=== PATIENT | female | born 1990 | race Caucasian/White ===

== ENCOUNTER 2017-05-20 12:06 | Outpatient (CLI) | payer MEDICAID ==
[~2017-05-20] VITALS: Ht 154.9 cm; Wt 78.3 kg
[2017-05-20] MEDS ORDERED: PREN1TAB13 PO (12:25)
[2017-05-20 12:26] VITALS: BP 100/60; PULSE 66; RESP 18; Ht 154.9 cm; Wt 78.3 kg
--- NOTE | 2017-05-20 12:44 | RADRPT ---
PROCEDURE: US OB biophysical profile. CLINICAL INDICATION: decreased movements TECHNIQUE: Multiple sonographic images of the pelvis were obtained. The images were reviewed on a PACS workstation. COMPARISON: No prior studies are available for comparison. FINDINGS: There is a single viable intrauterine gestation. Cardiac activity is present with 144 beats per min [place]. There is a vertex presentation. The placenta is posterior. There is no evidence of placental abruption. There is a normal amount of amniotic fluid with an HERMINIA = 16.5 cm. Biophysical profile: movement 2/2 tone 2/2. breathing 2/2 HERMINIA 2/2 Total 03/31 RPTAT: AA . IMPRESSION: Normal biophysical profile. . .Khanh Horton MD, MD Date Time Electronically viewed and signed by .Khanh Horton MD, MD on 05/20/2017 12:44 .S/
--- NOTE | 2017-05-20 15:29 | TRIAGE ---
OB Triage Datetime Report Generated by CPN: 05/20/2017 15:28 Datetime: 05/20/2017 14:00 Stage of : OB Triage Maternal Assessment Level of Consciousness: Fully Conscious Labor Evaluation Frequency: 5UC/HR Monitor Mode: External Duration (sec)2399: 30-80 Quality: Mild Resting Tone [place]: Relaxed Heart Rate FHR Baseline Rate: 125 Monitor Mode: External US Variability: Moderate 6-25 bpm Accelerations: 15X15 Decelerations: Variable Pain Assessment Pain Scale: 0 Pain Goal: 3 Vaginal Exam Membrane Status: Intact Vaginal Bleeding: None Datetime: 05/20/2017 13:00 Stage of : OB Triage Maternal Assessment Level of Consciousness: Fully Conscious Labor Evaluation Frequency: IRREGULAR Monitor Mode: External Duration (sec)2399: 30-80 Quality: Mild Resting Tone [place]: Relaxed Heart Rate FHR Baseline Rate: 125 Monitor Mode: External US Variability: Moderate 6-25 bpm Accelerations: 15X15 Decelerations: None Pain Assessment Pain Scale: 0 Pain Goal: 3 Vaginal Exam Membrane Status: Intact Vaginal Bleeding: None Datetime: 05/20/2017 12:23 Assessment Type: Triage Maternal Assessment Level of Consciousness: Fully Conscious DTR's/Clonus: DTRs 2+; No Clonus Headache: Denies Blurred Vision: No Respiratory Effort: Unlabored; Regular Rhythm; Equal Expansion Breath Sounds, Left: Clear and Equal Breath Sounds, Right: Clear and Equal Nausea/Vomiting: Denies RUQ Epigastric Pain: Denies Lower Extremities Edema: None Degree: None Upper Extremities Edema: None Degree: None Facial Edema: None Fall Risk Assessment History of Falling: (0) No Secondary Diagnosis: (0) No Ambulatory Aid: (0) Bedrest/Nurse Assist IV Therapy: (0) No Gait: (0) Normal/Bedrest/Immobile Mental Status: (0) Oriented to Own Ability Fall Score: 0 Fall Risk Score Definition: No Risk: No action required Datetime: 05/20/2017 12:20 Time of Arrival: 05/20/2017 12:00 EGA: 31.3 Arrived By: Ambulatory Arrived From: Dr. Vásquez Chief Complaint: PT HERE C/O DFM, AND RHOGHAM Movement: Decreased Contractions: Denies/Absent Rupture of Membranes: Denies Vaginal Bleeding: None Vaginal Discharge: Denies Recent Sexual Intercouse: Denies Abdominal Trauma: Not Applicable Patient Complaints: None Time Provider Notified: 05/20/2017 12:00 Provider Notified: COUNTS INCLUDE 234 BEDS AT THE [facility] Initial Plan: EFM, NST,RHOGHAM Datetime: 05/20/2017 12:19 Monitor Mode: External Monitor Mode: External US
--- NOTE | 2017-05-20 19:08 | PN ---
Triage Information Date/Time May 20, 2017 Reason for visit: DFM (Patient here due to decreased movement as well as to receive RhoGam shot since the patient is Rh-.) Weeks of Gestation 31 weeks and 3 days /Para 3 para 2 Diabetes: none Hypertention: none Additional information 27-year-old with IUP at 31 weeks and 3 days, Rh-. care with Dr. Magana presented to receive RhoGam shot as well as for evaluation due to decreased movement. She denies any leaking of fluid, vaginal bleeding or uterine contractions. Objective Vital Signs Date Time Temp Pulse Resp B/P Pulse Ox O2 Delivery O2 Flow Rate FiO2 05/20/17 12:26 97.9 66 18 100/60 99 Room Air Heart Rate: 130's Contractions: None Exam PROCEDURE: US OB biophysical profile. CLINICAL INDICATION: decreased movements TECHNIQUE: Multiple sonographic images of the pelvis were obtained. The images were reviewed on a PACS workstation. COMPARISON: No prior studies are available for comparison. FINDINGS: There is a single viable intrauterine gestation. Cardiac activity is present with 144 beats per minute. There is a vertex presentation. The placenta is posterior. There is no evidence of placental abruption. There is a normal amount of amniotic fluid with an HERMINIA = 16.5 cm. Biophysical profile: movement 2/2 tone 2/2. breathing 2/2 HERMINIA 2/2 Total 8/8 RPTAT: AA . IMPRESSION: Normal biophysical profile. . Disposition: Discharge Assessment/Plan IUP at 31 weeks and 3 days movement, NST category 1, BPP: 8/8 HERMINIA: 16.5 Patient received RhoGam shot after she had blood drawn for type and screen She was reassured after had reassuring testing Was discharged home with strict labor precaution and kick count and follow-up within 24-48 hours with her primary OB Patient verbalized understanding and agreed to comply with instructions ADELA STEIN MD May 20, 2017 19:08
== END 2017-05-20 15:30 | disposition home or self-care (01) ==
LOC: OBT 12:06 → L-D 12:09 → OBT 15:30
PROVIDERS: ATTEND Obstetrics & Gynecology
DX: O36.8130 Decreased fetal movements, third trimester, not applicable or unspecified (principal); Z3A.31 31 weeks gestation of pregnancy
CPT/HCPCS: 76818; 86850; 86885; 86900; 86901; 96372; J2790; Z7500; G0463

== ENCOUNTER 2017-06-24 11:15 | Outpatient (CLI) | payer MEDICAID ==
[~2017-06-24] VITALS: Ht 154.9 cm; Wt 80.1 kg
[~2017-06-24 11:15] MED LIST: PREN1TAB13 PO
[2017-06-24 12:52] VITALS: BP 106/59; PULSE 71; Ht 154.9 cm; Wt 80.1 kg
--- NOTE | 2017-06-24 13:41 | RADRPT ---
PROCEDURE: US OB biophysical profile. CLINICAL INDICATION: decreased movements, PIH TECHNIQUE: Multiple sonographic images of the pelvis were obtained. The images were reviewed on a PACS workstation. COMPARISON: 05/20/2017 FINDINGS: There is a single viable intrauterine gestation. Cardiac activity is present with 139 beats per min [place]. There is a vertex presentation. The placenta is posterior. There is no evidence of placental abruption. There is a normal amount of amniotic fluid with an HERMINIA = 12.2 cm. Biophysical profile: movement 2/2 tone 2/2. breathing 2/2 HERMINIA 2/2 Total 03/31 RPTAT: AA . IMPRESSION: Normal biophysical profile. . .Khanh Horton MD, MD Date Time Electronically viewed and signed by .Khanh Horton MD, MD on 06/24/2017 13:40 .S/
--- NOTE | 2017-06-24 13:41 | RADRPT ---
PROCEDURE: US OB. CLINICAL INDICATION: Size and dates TECHNIQUE: Multiple sonographic images of the pelvis and gravid uterus were obtained. The images were reviewed on a PACS workstation. COMPARISON: 05/20/2017 FINDINGS: There is a single viable intrauterine gestation. Cardiac activity is present with 152 beats per min [place]. There is a vertex presentation. The placenta is posterior. There is no evidence of placental abruption. There is a normal amount of amniotic fluid with an HERMINIA = 12.2 cm. Measurements were made in order to determine age. The results are as follows: BPD =8.8 cm HC =32.1 cm AC =33 cm FL =6.9 cm Estimated gestational age of approximately 36 weeks and 0 days based on ultrasound measurements. Clinical age: 36 weeks and 3 days. The estimated date of delivery is 07/22/17, based on ultrasound measurements. The EFW = 2902 g, 49.6%, based on LMP age. RPTAT: AA IMPRESSION: Single viable intrauterine gestation of approximately 36 weeks and 0 days based on ultrasound measu rements. .Khanh Horton MD, MD Date Time Electronically viewed and signed by .Khanh Horton MD, on 06/24/2017 13:41 .S/
[2017-06-24 13:52] LABS: BASOPHILS % 0.3 % (0.0-2.0); EOSINOPHILS # 0.1 10^3/ul (0.0-0.5); HEMATOCRIT 31.1 % (37.0-47.0); LYMPHOCYTES # 2.2 10^3/ul (0.8-2.9); LYMPHOCYTES % 30.1 % (15.0-51.0); MEAN CORPUSCULAR HEMOGLOBIN 28.8 pg (29.0-33.0); MEAN CORPUSCULAR HGB CONC 32.2 g/dl (32.0-37.0); MEAN CORPUSCULAR VOLUME 89.6 fl (82.0-101.0); MEAN PLATELET VOLUME 10.6 fl (7.4-10.4); MONOCYTE # 0.6 10^3/ul (0.3-0.9); NEUTROPHIL # 4.3 10^3/ul (1.6-7.5); NEUTROPHILS % 59.1 % (39.0-77.0); PLATELET COUNT 257 10^3/UL (140-415); RED BLOOD COUNT 3.47 10^6/ul (4.20-5.40); RED CELL DISTRIBUTION WIDTH 12.3 % (11.5-14.5); WHITE BLOOD COUNT 7.2 10^3/ul (4.8-10.8)
[2017-06-24 14:13] LABS: INR 0.89; PT RATIO 0.9
[2017-06-24 14:14] LABS: PARTIAL THROMBOPLASTIN TIME 23.3 Sec (25.0-35.0)
[2017-06-24 14:16] LABS: ALBUMIN 3.3 g/dl (3.3-4.9); ALBUMIN/GLOBULIN RATIO 0.91; BILIRUBIN,INDIRECT 0.1 mg/dl (0-1.1); BILIRUBIN,TOTAL 0.1 mg/dl (0.2-1.3); CALCIUM 8.5 mg/dl (8.4-10.2); CREATININE 0.56 mg/dl (0.44-1.00); TOTAL PROTEIN 6.9 g/dl (6.1-8.1); URIC ACID 5.2 mg/dl (3.1-7.9)
[2017-06-24] MEDS ORDERED: ACETAMINOPHEN 500 MG TAB PO STA (15:22)
--- NOTE | 2017-06-24 16:14 | PN ---
Triage Information Date/Time Reason for visit: R/o PIH, FINN and blurred vision occasionally Weeks of Gestation 36 weeks and 3 days /Para Additional information 27 years old with IUP at 36 weeks and 3days and care with Dr. Magana presented and was sent to triage for evaluation for PIH due to headache and occcasional blurred vision. Denies any epigastric pain or RUQ pain. Denies any LOF, vaginal bleeding or decreased movement. records reviewed, no elevated BP noted. headache started since yesterday, some times has blurred vision when she feels her BP is low, Never has been checking her BP at home Patient noted to have normal BP in the triage during observation. Objective Vital Signs Date Time Temp Pulse Resp B/P Pulse Ox O2 Delivery O2 Flow Rate FiO2 06/24/17 12:52 98.1 71 106/59 Exam GA: A&O, in mild distress Abdomen: soft, non tender, gravid Fundal Height consistent with GA NST: Cat 1 PIH labs normal Hematology - 72 Hrs Test 06/24/17 13:21 White Blood Count 7.210^3/ul (4.8-10.8) Red Blood Count 3.4710^6/ul (4.20-5.40) L Hemoglobin 10.0g/dl (12.0-16.0) L Hematocrit 31.1% (37.0-47.0) L Mean Corpuscular Volume 89.6fl (82.0-101.0) Mean Corpuscular Hemoglobin 28.8pg (29.0-33.0) L Mean Corpuscular Hemoglobin Concent 32.2g/dl (32.0-37.0) Red Cell Distribution Width 12.3% (11.5-14.5) Platelet Count 93534^3/UL (140-415) Mean Platelet Volume 10.6fl (7.4-10.4) H Neutrophils % 59.1% (39.0-77.0) Lymphocytes % 30.1% (15.0-51.0) Monocytes % 8.0% (0.0-11.0) Eosinophils % 1.0% (0.0-7.0) Basophils % 0.3% (0.0-2.0) Nucleated Red Blood Cells % 0.0/100WBC (0.0-0.0) Neutrophils # 4.310^3/ul (1.6-7.5) Lymphocytes # 2.210^3/ul (0.8-2.9) Monocytes # 0.610^3/ul (0.3-0.9) Eosinophils # 0.110^3/ul (0.0-0.5) Basophils # 0.010^3/ul (0.0-0.1) Nucleated Red Blood Cells # 0.010^3/ul (0.0-0.0) Chemistry Test 06/24/17 13:10 Sodium Level 137mmol/L (135-144) Potassium Level 4.0mmol/L (3.5-5.1) Chloride Level 107mmol/L (97-110) Carbon Dioxide Level 21mmol/L (21-31) Anion Gap 13 (8-16) Blood Urea Nitrogen 8mg/dl (7-20) Creatinine 0.56mg/dl (0.44-1.00) Glucose Level 78mg/dl (70-220) Uric Acid 5.2mg/dl (3.1-7.9) Calcium Level 8.5mg/dl (8.4-10.2) Total Bilirubin 0.1mg/dl (0.2-1.3) L Direct Bilirubin 0.00mg/dl (0.00-0.20) Indirect Bilirubin 0.1mg/dl (0-1.1) Aspartate Amino Transf (AST/SGOT) 32IU/L (15-46) Alanine Aminotransferase (ALT/SGPT) 28IU/L (13-69) Alkaline Phosphatase 167IU/L (42-121) H Total Protein 6.9g/dl (6.1-8.1) Albumin 3.3g/dl (3.3-4.9) Globulin 3.60g/dl (1.3-3.2) H Albumin/Globulin Ratio 0.91 Results/Medications Result Diagram: 06/24/17 1321 06/24/17 1310 Results 24 hrs Laboratory Tests Test 06/24/17 13:10 06/24/17 13:20 06/24/17 13:21 Sodium Level 137 Potassium Level 4.0 Chloride Level 107 Carbon Dioxide Level 21 Anion Gap 13 Blood Urea Nitrogen 8 Creatinine 0.56 Glucose Level 78 Uric Acid 5.2 Calcium Level 8.5 Total Bilirubin 0.1 L Direct Bilirubin 0.00 Indirect Bilirubin 0.1 Aspartate Amino Transf (AST/SGOT) 32 Alanine Aminotransferase (ALT/SGPT) 28 Alkaline Phosphatase 167 H Total Protein 6.9 Albumin 3.3 Globulin 3.60 H Albumin/Globulin Ratio 0.91 Prothrombin Time 12.0 L Prothrombin Time Ratio 0.9 INR International Normalized Ratio 0.89 Activated Partial Thromboplast Time 23.3 L Fibrinogen 594.0 H White Blood Count 7.2 Red Blood Count 3.47 L Hemoglobin 10.0 L Hematocrit 31.1 L Mean Corpuscular Volume 89.6 Mean Corpuscular Hemoglobin 28.8 L Mean Corpuscular Hemoglobin Concent 32.2 Red Cell Distribution Width 12.3 Platelet Count 257 Mean Platelet Volume 10.6 H Neutrophils % 59.1 Lymphocytes % 30.1 Monocytes % 8.0 Eosinophils % 1.0 Basophils % 0.3 Nucleated Red Blood Cells % 0.0 Neutrophils # 4.3 Lymphocytes # 2.2 Monocytes # 0.6 Eosinophils # 0.1 Basophils # 0.0 Nucleated Red Blood Cells # 0.0 Imaging Results PROCEDURE: US OB biophysical profile. CLINICAL INDICATION: decreased movements, PIH TECHNIQUE: Multiple sonographic images of the pelvis were obtained. The images were reviewed on a PACS workstation. COMPARISON: 05/20/2017 FINDINGS: There is a single viable intrauterine gestation. Cardiac activity is present with 139 beats per minute. There is a vertex presentation. The placenta is posterior. There is no evidence of placental abruption. There is a normal amount of amniotic fluid with an HERMINIA = 12.2 cm. Biophysical profile: movement 2/2 tone 2/2. breathing 2/2 HERMINIA 2/2 Total 88 RPTAT: AA . IMPRESSION: Normal biophysical profile. PROCEDURE: US OB. CLINICAL INDICATION: Size and dates TECHNIQUE: Multiple sonographic images of the pelvis and gravid uterus were obtained. The images were reviewed on a PACS workstation. COMPARISON: 05/20/2017 FINDINGS: There is a single viable intrauterine gestation. Cardiac activity is present with 152 beats per minute. There is a vertex presentation. The placenta is posterior. There is no evidence of placental abruption. There is a normal amount of amniotic fluid with an HERMINIA = 12.2 cm. Measurements were made in order to determine age. The results are as follows: BPD = 8.8 cm HC = 32.1 cm AC = 33 cm FL = 6.9 cm Estimated gestational age of approximately 36 weeks and 0 days based on ultrasound measurements. Clinical age: 36 weeks and 3 days. The estimated date of delivery is 07/22/17, based on ultrasound measurements. The EFW = 2902 g, 49.6%, based on LMP age. RPTAT: AA IMPRESSION: Single viable intrauterine gestation of approximately 36 weeks and 0 days based on ultrasound measurements. Disposition: Discharge Assessment/Plan IUPmat 36 weeks and 3 days FINN and occasional blurred vision No evidence of PIH BP has been serially monitored and was normal PIH labs were all normal Finn resolved with tyleno Strict Preeclampsia precaution and PTL and FKC and follow up in 1-2 days with her OB office discussed. Patient verbalized understanding and all questions were answered science interpreter video system used for interpretation ADELA STEIN MD Jun 24, 2017 16:10
[2017-06-24 16:42] LABS: URINE BLOOD (Dip) POC Trace-lysed (NEGATIVE)
--- NOTE | 2017-06-24 17:12 | TRIAGE ---
OB Triage Datetime Report Generated by CPN: 06/24/2017 17:11 Datetime: 06/24/2017 16:43 Stage of : OB Triage Datetime: 06/24/2017 16:40 Labor Evaluation Frequency: 0 Monitor Mode: External Resting Tone [place]: Relaxed Heart Rate FHR Baseline Rate: 125 Monitor Mode: External US Variability: Moderate 6-25 bpm Accelerations: 10X10 Decelerations: None Category: Category I Pain Assessment Pain Scale: 3 Pain Presence: Constant Pain Type: Ache Pain Location: Head Pain Goal: 3 Pain Relief Measures: Comfort Measures Datetime: 06/24/2017 15:48 Labor Evaluation Frequency: 0 Monitor Mode: External Resting Tone [place]: Relaxed Heart Rate FHR Baseline Rate: 125 Monitor Mode: External US Variability: Moderate 6-25 bpm Accelerations: 10X10 Decelerations: None Category: Category I Pain Assessment Pain Scale: 6 Pain Presence: Intermittent Pain Type: Ache Pain Location: Head Pain Goal: 3 Pain Relief Measures: Comfort Measures Datetime: 06/24/2017 15:25 Stage of : OB Triage Datetime: 06/24/2017 15:17 Stage of : OB Triage Datetime: 06/24/2017 14:47 Labor Evaluation Frequency: 0 Monitor Mode: External Resting Tone [place]: Relaxed Heart Rate FHR Baseline Rate: 125 Monitor Mode: External US Variability: Moderate 6-25 bpm Accelerations: 10X10 Decelerations: None Category: Category I Pain Assessment Pain Scale: 3 Pain Presence: Constant Pain Type: Ache Pain Location: Head Pain Goal: 3 Pain Relief Measures: Comfort Measures Datetime: 06/24/2017 14:24 Monitor Mode: External US Datetime: 06/24/2017 13:56 Monitor Mode: External US Datetime: 06/24/2017 13:37 Monitor Mode: External US Datetime: 06/24/2017 13:17 Labor Evaluation Frequency: 0 Monitor Mode: External Resting Tone [place]: Relaxed Heart Rate FHR Baseline Rate: 135 Monitor Mode: External US Variability: Moderate 6-25 bpm Accelerations: 10X10 Decelerations: None Category: Category I Pain Assessment Pain Scale: 3 Pain Presence: Constant Pain Type: Ache Pain Location: Head Pain Goal: 3 Datetime: 06/24/2017 12:46 Stage of : OB Triage Assessment Type: Triage Maternal Assessment Level of Consciousness: Fully Conscious DTR's/Clonus: DTRs 2+; No Clonus Headache: Denies Respiratory Effort: Unlabored; Regular Rhythm; Equal Expansion Breath Sounds, Left: Clear and Equal Breath Sounds, Right: Clear and Equal Nausea/Vomiting: Denies RUQ Epigastric Pain: Denies Facial Edema: None Temperature Route: Axillary Fall Risk Assessment History of Falling: (0) No Secondary Diagnosis: (0) No Ambulatory Aid: (0) Bedrest/Nurse Assist IV Therapy: (0) No Gait: (0) Normal/Bedrest/Immobile Mental Status: (0) Oriented to Own Ability Fall Score: 0 Fall Risk Score Definition: No Risk: No action required Labor Evaluation Frequency: 0 Monitor Mode: External Pattern: Normal: <= 5 Contractions in 10 Minutes Resting Tone [place]: Relaxed Heart Rate FHR Baseline Rate: 125 Monitor Mode: External US Variability: Moderate 6-25 bpm Accelerations: 10X10 Decelerations: None Category: Category I Pain Assessment Pain Scale: 7 Pain Presence: Intermittent Pain Type: Cramping Pain Location: Back; Perineum Pain Goal: 3 Pain Relief Measures: Comfort Measures Datetime: 06/24/2017 12:28 Time of Arrival: 06/24/2017 11:09 EGA: 36.3 Arrived By: Ambulatory Arrived From: Dr. Office Chief Complaint: REFERRED FROM DR OFFICE TO R/O PIH, EFW, BPP. H/A AND PERINEAL/BACK PAIN THAT IS INTERMITTENT Movement: Present Contractions: Denies/Absent Rupture of Membranes: Denies Vaginal Bleeding: None Vaginal Discharge: Present Recent Sexual Intercouse: Denies Abdominal Trauma: Not Applicable Patient Complaints: Cramping; Back Pain Time Provider Notified: 06/24/2017 15:17 Provider Notified: ARDALAN Initial Plan: MONITOR, PIH PANEL, EFW, BPP Datetime: 05/20/2017 15:00 Stage of : OB Triage Maternal Assessment Level of Consciousness: Fully Conscious Labor Evaluation Frequency: occasional Monitor Mode: External Duration (sec)2399: 30-80 Quality: Mild Resting Tone [place]: Relaxed Heart Rate FHR Baseline Rate: 125 Monitor Mode: External US Variability: Moderate 6-25 bpm Accelerations: 15X15 Decelerations: Variable Pain Assessment Pain Scale: 0 Pain Goal: 3 Vaginal Exam Membrane Status: Intact Vaginal Bleeding: None Datetime: 05/20/2017 12:23 Fall Score: 0 Fall Risk Score Definition: No Risk: No action required Datetime: 05/20/2017 12:20 EGA: 31.3
== END 2017-06-24 16:55 | disposition home or self-care (01) ==
LOC: OBT 11:15 → L-D 11:15 → OBT 16:55
PROVIDERS: ATTEND Obstetrics & Gynecology
DX: O26.893 Other specified pregnancy related conditions, third trimester (principal); R51 Headache; H53.8 Other visual disturbances; O36.8130 Decreased fetal movements, third trimester, not applicable or unspecified; O26.843 Uterine size-date discrepancy, third trimester; Z3A.36 36 weeks gestation of pregnancy
CPT/HCPCS: 76815; 76818; 80053; 81003; 84560; 85025; 85384; 85610; 85730; Z7500; Z7610; G0463

== ENCOUNTER 2017-07-06 04:49 | Inpatient (IN) | payer MEDICAID ==
[2017-07-06] MEDS ORDERED: LACTATED RINGER'S 1,000 ML IV SCH (05:17)
[2017-07-06] MEDS ORDERED: AMPICILLIN 2 GM/NS (PMX) 100 ML ONE (05:21)
[2017-07-06] MEDS ORDERED: MISOPROSTOL 200 MCG TAB PR PRN ×2 (05:30→06:30)
[2017-07-06] MEDS ORDERED: AMPICILLIN 2 GM/NS (PMX) 100 ML IV ONE (05:30)
[2017-07-06] MEDS ORDERED: IBUPROFEN 600 MG TAB PO PRN (05:30)
[2017-07-06] MEDS ORDERED: OXYTOCIN 30 UNITS/LR 500 ML IV SCH ×2 (05:30)
[2017-07-06] MEDS ORDERED: OXYCODONE/ASPIRIN (4.88/325) TAB PO PRN (05:30)
[2017-07-06] MEDS ORDERED: LIDOCAINE 1% (MPF) 30 ML INJ INJ PRN (05:30)
[2017-07-06] MEDS ORDERED: LACTATED RINGER'S 1,000 ML IV PRN (05:30)
[2017-07-06] MEDS ORDERED: METHYLERGONOVINE 0.2 MG INJ IM PRN ×2 (05:30→06:30)
[2017-07-06] MEDS ORDERED: CARBOPROST 250 MCG INJ IM PRN ×2 (05:30→06:30)
[2017-07-06] MEDS ORDERED: BUTORPHANOL 2 MG INJ IV PRN (05:30)
[2017-07-06] MEDS ORDERED: OXYTOCIN 30 UNITS/LR 500 ML IV PRN ×2 (05:30→06:30)
--- NOTE | 2017-07-06 06:11 | LDN ---
Date/Time of Note Date/Time of Note DATE: 07/06/17 TIME: 06:09 Delivery Summary of a viable baby boy weighing 3425 grams, or 7# 9 oz, 20" long, and with Apgars of 8/9. Weeks of Gestation 38w 2d Placenta Delivered: Spontaneously Meconium: none Episiotomy: No Perineal laceration: 0 Anesthesia type: None Estimated blood loss: 150 All needle counts correct: Yes Any foreign bodies felt in the: No (vagina) Problems: Infant Delivery Information Sex Sex: male Apgars 1 Minute: 8 5 Minute: 9 Suctioning Nose & mouth suctioned at kelly: Yes Delee suction performed: No Umbilical Cord Umbilical cord with: 3 Vessels Cord presentations: no nuchal cord Cord Blood was obtained: Yes Mother & Baby Disposition Disposition Mom & Baby to Maternity; Good: Yes Baby to NICU: No NAKITA HUNTER MD Jul 06, 2017 06:11
--- NOTE | 2017-07-06 06:15 | HP ---
Date/Time of Note Date/Time of Note DATE: 07/06/17 TIME: 06:11 OB - History Hx of Present Free Text/Dictation 26 y.o. with an IUP at 38w 2dcame in active labor at 9 cm and with ruptured membranes. Estimated Due Date: Jul 19, 2017 : 3 Para: 2 Care: Good Care Ultrasounds: Normal mid trimester US Obstetrical Complications: None Medical Complications: None Past Family/Social History * Past Medical, Surgical, Family and Obstetric Histories reviewed from chart. Blood Type: Unknown Rubella: unknown RPR/VDRL: Unknown GBS Status: Unknown HBsAG: Unknown OB Admission Exam Vital Signs Vital Signs T= 98.1 BP 125/67 Physical Exam HEENT: WNL Heart: Rhythm Normal Lungs: Clear Abdomen: WNL Extremities: Normal Reflexes: Normal Cervical Dilatation: 9cm Effacement: 100% Station: -2 Membranes: Ruptured Amniotic Fluid: Clear Heart Rate: 120's Accelerations: Accelerations Present Decelerations: No Decelerations Varibility: Moderate Contractions on Admission: < 5 Minutes Apart OB Assessment/Plan Reason for admission: active labor, rupture of membranes Plan: Expectant Management Other plan: Beta strep prophylaxis. NAKITA HUNTER MD Jul 06, 2017 06:15
[2017-07-06] MEDS ORDERED: LANOLIN 7 GM TUBE TOP PRN (06:30)
[2017-07-06] MEDS ORDERED: HYDROCODONE/APAP (5/325) TAB PO PRN (06:30)
[2017-07-06] MEDS ORDERED: IBUPROFEN 600 MG TAB ONE (06:31)
[2017-07-06] MEDS: IBUPROFEN 600 MG TAB PO SCH ×4 (06:32→17:42)
[2017-07-06 06:36] LABS: ABNORMAL IP MESSAGE 1; BASOPHILS % 0.2 % (0.0-2.0); EOSINOPHILS # 0.1 10^3/ul (0.0-0.5); EOSINOPHILS % 0.6 % (0.0-7.0); HEMATOCRIT 33.3 % (37.0-47.0); HEMOGLOBIN 10.7 g/dl (12.0-16.0); LYMPHOCYTES % 39.9 % (15.0-51.0); MEAN CORPUSCULAR HGB CONC 32.1 g/dl (32.0-37.0); MEAN CORPUSCULAR VOLUME 87.2 fl (82.0-101.0); MEAN PLATELET VOLUME 11.4 fl (7.4-10.4); MONOCYTE # 0.8 10^3/ul (0.3-0.9); MONOCYTES % 6.4 % (0.0-11.0); NEUTROPHIL # 6.5 10^3/ul (1.6-7.5); NEUTROPHILS % 51.7 % (39.0-77.0); PLATELET COUNT 248 10^3/UL (140-415); RED BLOOD COUNT 3.82 10^6/ul (4.20-5.40); RED CELL DISTRIBUTION WIDTH 12.6 % (11.5-14.5); WHITE BLOOD COUNT 12.6 10^3/ul (4.8-10.8)
[2017-07-06] MEDS: OXYTOCIN 30 UNITS/LR 500 ML IV SCH ×2 (06:36→09:06)
[2017-07-06 06:43] LABS: INR 0.83; PROTIME 11.4 Sec (12.2-14.2); PT RATIO 0.9
[2017-07-06 07:02] LABS: POSITIVE DIFF @See below
--- NOTE | 2017-07-06 07:46 | TRIAGE ---
OB Triage Datetime Report Generated by CPN: 07/06/2017 07:46 Datetime: 07/06/2017 06:49 Stage of : Recovery Pain Presence: Constant Pain Type: Ache Pain Location: Perineum Pain Relief Measures: Comfort Measures Datetime: 07/06/2017 06:19 Stage of : Recovery Pain Assessment Pain Scale: 4 Pain Presence: Constant Pain Type: Ache Pain Location: Perineum Pain Goal: 1 Pain Relief Measures: Comfort Measures Datetime: 07/06/2017 06:03 Stage of : Recovery Pain Assessment Pain Scale: 4 Pain Presence: Constant Pain Type: Ache Pain Location: Perineum Pain Goal: 1 Pain Relief Measures: Comfort Measures Datetime: 07/06/2017 05:49 Stage of : Recovery Temperature Route: Oral Pain Assessment Pain Scale: 4 Pain Presence: Constant Pain Type: Ache Pain Location: Perineum Pain Goal: 1 Pain Relief Measures: Comfort Measures (Annotations: Will give pain med) Datetime: 07/06/2017 05:26 Vaginal Exam Dilatation (cms): 10.0 Effacement (%): 100 Station: 0 Exam By: M LOBO Vaginal Bleeding: Normal Show Cervix, Consistency: Soft Cervix, Position: Midposition Presentation 'A': Cephalic Datetime: 07/06/2017 05:20 Assessment Type: Admission Assessment Vaginal Bleeding: Normal Show Maternal Assessment Level of Consciousness: Fully Conscious DTR's/Clonus: DTRs 2+; No Clonus Headache: Denies Blurred Vision: No Respiratory Effort: Unlabored Breath Sounds, Left: Clear and Equal Breath Sounds, Right: Clear and Equal Nausea/Vomiting: Denies RUQ Epigastric Pain: Denies Lower Extremities Edema: None Degree: None Upper Extremities Edema: None Degree: None Facial Edema: None Fall Risk Assessment History of Falling: (0) No Secondary Diagnosis: (0) No Ambulatory Aid: (0) Bedrest/Nurse Assist IV Therapy: (20) Yes Gait: (0) Normal/Bedrest/Immobile Mental Status: (0) Oriented to Own Ability Fall Score: 20 Fall Risk Score Definition: No Risk: No action required Labor Evaluation Frequency: q2min Duration (sec)2399: 60-90 Quality: Moderate Pattern: Normal: <= 5 Contractions in 10 Minutes Resting Tone [place]: Relaxed Heart Rate FHR Baseline Rate: 120 Variability: Moderate 6-25 bpm Accelerations: 15X15 Decelerations: None Category: Category I Pain Assessment Pain Scale: 9 Pain Presence: Intermittent Pain Type: Contraction Pain Location: Abdomen; Back; Perineum Pain Goal: 0 Vaginal Exam Dilatation (cms): 9.0 Effacement (%): 100 Station: -1 Membrane Status: Ruptured Membranes Ruptured Date/Time: 07/06/2017 04:00 Membranes Rupture Method: Spontaneous Amniotic Fluid Color: Clear Amniotic Fluid Amount: Moderate Amniotic Fluid Odor: None Pool: Positive Datetime: 07/06/2017 05:16 Vaginal Exam Dilatation (cms): 9.0 Effacement (%): 100 Station: -1 Membrane Status: Ruptured Datetime: 07/06/2017 05:03 Assessment Type: Triage Maternal Assessment Level of Consciousness: Fully Conscious DTR's/Clonus: DTRs 2+ Headache: Denies Blurred Vision: No Respiratory Effort: Unlabored Breath Sounds, Left: Clear and Equal Breath Sounds, Right: Clear and Equal Nausea/Vomiting: Denies RUQ Epigastric Pain: Denies Lower Extremities Edema: None Degree: None Upper Extremities Edema: None Degree: None Facial Edema: None Fall Risk Assessment History of Falling: (0) No Secondary Diagnosis: (0) No Ambulatory Aid: (0) Bedrest/Nurse Assist IV Therapy: (0) No Gait: (0) Normal/Bedrest/Immobile Mental Status: (0) Oriented to Own Ability Fall Score: 0 Fall Risk Score Definition: No Risk: No action required Datetime: 07/06/2017 05:00 Time of Arrival: 07/06/2017 04:45 EGA: 38.1 Arrived By: Wheelchair Arrived From: Home Chief Complaint: UCS, ROM Movement: Present Contractions: Regular Time Contractions Began: 07/06/2017 04:00 Contractions: Q 4 MIN Rupture of Membranes: Unsure Vaginal Bleeding: None Vaginal Discharge: Denies Recent Sexual Intercouse: Denies Abdominal Trauma: Not Applicable Patient Complaints: Contractions; Back Pain Initial Plan: VS, EFM, CHECK FOR POOLING, NITRAZINE, SVE, Datetime: 06/24/2017 12:46 Fall Score: 0 Fall Risk Score Definition: No Risk: No action required Datetime: 06/24/2017 12:28 EGA: 36.3 Datetime: 05/20/2017 12:23 Fall Score: 0 Fall Risk Score Definition: No Risk: No action required Membranes Ruptured Date/Time: 07/06/2017 04:00 Membranes Rupture Method: Spontaneous Amniotic Fluid Color: Clear Amniotic Fluid Amount: Moderate Amniotic Fluid Odor: None Datetime: 05/20/2017 12:20 EGA: 31.3
[2017-07-06] MEDS ORDERED: AMPICILLIN 1 GM/NS (PMX) 50 ML IV SCH (09:30)
[2017-07-06 10:00] VITALS: BP 124/60; PULSE 63; RESP 18
[2017-07-06] MEDS: LACTATED RINGER'S 1,000 ML IV* SCH ×2 (10:20→14:06)
[2017-07-06 16:00] VITALS: BP 96/46; PULSE 56; RESP 18
[2017-07-06 19:50] VITALS: BP 112/58; PULSE 59; RESP 17
[2017-07-07] MEDS: IBUPROFEN 600 MG TAB PO SCH ×5 (00:43→23:38)
[2017-07-07 04:00] VITALS: BP 101/57; PULSE 53; RESP 17
[2017-07-07 08:00] VITALS: BP_SYST 107; BP_SYST 114; BP_DIAS 59; BP_DIAS 68; PULSE 80; RESP 18
[2017-07-07 09:00] LABS: WHITE BLOOD COUNT 11.1 10^3/ul (4.8-10.8)
[2017-07-07 09:01] LABS: BASOPHILS % 0.4 % (0.0-2.0); EOSINOPHILS # 0.1 10^3/ul (0.0-0.5); EOSINOPHILS % 0.6 % (0.0-7.0); HEMATOCRIT 30.3 % (37.0-47.0); HEMOGLOBIN 9.7 g/dl (12.0-16.0); LYMPHOCYTES # 2.8 10^3/ul (0.8-2.9); LYMPHOCYTES % 25.1 % (15.0-51.0); MEAN CORPUSCULAR HEMOGLOBIN 28.5 pg (29.0-33.0); MEAN CORPUSCULAR VOLUME 89.1 fl (82.0-101.0); MEAN PLATELET VOLUME 10.8 fl (7.4-10.4); MONOCYTE # 0.6 10^3/ul (0.3-0.9); MONOCYTES % 5.6 % (0.0-11.0); NEUTROPHIL # 7.5 10^3/ul (1.6-7.5); NEUTROPHILS % 67.1 % (39.0-77.0); PLATELET COUNT 215 10^3/UL (140-415); RED CELL DISTRIBUTION WIDTH 12.6 % (11.5-14.5)
[2017-07-07] MEDS ORDERED: INFLUENZA VIRUS VACCINE 0.5 ML SYG IM* ONE (11:00)
[2017-07-07 15:50] VITALS: BP 99/55; PULSE 74; RESP 18
--- NOTE | 2017-07-07 16:59 | QN ---
Documentation Comment Post normal vaginal delivery day 1 Afebrile Vital signs are stable Dominant soft, uterus firm, lochia normal, extremity normal, plan of a.m. discharge discussed with the patient JOHNIE SCHULER MD Jul 07, 2017 16:59
[2017-07-07 19:50] VITALS: BP 107/52; PULSE 50; RESP 17
[2017-07-08 04:00] VITALS: BP 90/47; PULSE 47; RESP 18
[2017-07-08 04:27] VITALS: BP 103/57; PULSE 47; RESP 20
[2017-07-08] MEDS: IBUPROFEN 600 MG TAB PO SCH (05:40)
[2017-07-08 08:00] VITALS: BP 110/63; PULSE 56; RESP 19
[2017-07-08] MEDS ORDERED: DIPHTH/TET/ACEL PERTUSS (ADULT) 0.5 ML VIAL IM* ONE (09:00)
--- NOTE | 2017-07-08 09:59 | PD.PPDC ---
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
--- NOTE | 2017-07-08 10:01 | DS ---
Date/Time of Note Date/Time of Note DATE: 07/08/17 TIME: 10:00 Discharge Summary Admission/Discharge Info Admit Date/Time Jul 06, 2017 at 05:10 Discharge Date/Time July 10, 2017 10 AM Discharge Diagnosis Post normal vaginal delivery day 2 Patient Condition: Good Procedures Normal vaginal delivery Hx of Present Illness Term in labor Hospital Course Satisfactory recovery uneventful Home Meds Reported Medications Pnv95/Ferrous Fumarate/FA ( Vitamins Tablet) 1 Each Tablet, 1 EACH PO DAILY, TAB 05/20/17 Follow-up Plan instruction given recommended to make appointment to be seen at the clinic in 2 weeks Primary Care Provider Care Physician No Primary Time spent on discharge: < 30 minutes JOHNIE SCHULER MD Jul 08, 2017 10:01
== END 2017-07-08 11:35 | disposition home or self-care (01) | DRG 775 ==
LOC: OBT 04:49 → L-D 04:50 → PP1 09:49
PROVIDERS: ADMIT Obstetrics & Gynecology; ATTEND Obstetrics & Gynecology
PROC: 10E0XZZ Delivery of Products of Conception, External Approach (ICD-10-PCS; principal; 2017-07-06)
DX: O80 Encounter for full-term uncomplicated delivery (principal); Z37.0 Single live birth; Z3A.38 38 weeks gestation of pregnancy
CPT/HCPCS: 85025; 85610; 85730; 86592; 86850; 86870; 86885; 86900; 86901; 87340; 90686; 90715; G0463; J0290; J2590; J2790; J7120